=== PATIENT | female | born 2000 | race African-American/Black ===

== ENCOUNTER 2021-07-20 19:28 | Emergency (ER) | payer MEDICAID, OTHER ==
[~2021-07-20] VITALS: Ht 160 cm; Wt 59.0 kg
[2021-07-20 20:50] VITALS: BP 117/78
== END 2021-07-20 20:55 | disposition home or self-care (01) ==
LOC: ER 19:52
DX: S40.022A Contusion of left upper arm, initial encounter (principal); Y04.0XXA Assault by unarmed brawl or fight, initial encounter; Y93.89 Activity, other specified; Y92.89 Other specified places as the place of occurrence of the external cause; Y99.8 Other external cause status
CPT/HCPCS: 99281